=== PATIENT | female | born 1990 | race Caucasian/White ===

== ENCOUNTER 2018-12-17 12:08 | Emergency (ER) | payer OTHER, MEDICAID ==
[2018-12-17] MEDS: ACETAMINOPHEN 325 MG TAB PO (15:14)
[2018-12-17] MEDS: DEXAMETHASONE 10 MG/ML 1 ML INJ IM (16:10)
[2018-12-17] MEDS: ALBUTEROL 0.083% (NEB) 2.5 MG/3 ML AMP HHN (16:37)
== END 2018-12-17 17:14 | disposition home or self-care (01) ==
LOC: FTE 12:08
DX: R05 Cough (principal)
CPT/HCPCS: 71045; 87400; 94664; 96372; 99284-25